=== PATIENT | male | born 1970 | race Caucasian/White ===

== ENCOUNTER 2017-04-16 09:20 | Day surgery (SDC) | payer OTHER ==
[2014-05-19 21:00] VITALS: BMI 28.8
[2017-04-16] MEDS ORDERED: Propofol 10 mg/ml Inj (20 ML) ONE (11:01)
[2017-04-16] MEDS ORDERED: Midazolam 2 MG/2 ML VIAL ONE (11:03)
--- NOTE | 2017-04-16 11:05 | CP.SDSHP ---
Same Day Surgery H & P - History Proposed Procedure: egd Pre-Op Diagnosis: see notes - Previous Medical/Surgical History Cardiac: Hypertension Pain: 4.Moderate Pain - Allergies Allergies: Allergies No Known Allergies Allergy (Verified 05/19/14 21:11) - Physical Exam General Appearance: n Vital Signs: Vital Signs 04/16/17 09:56 Temperature 98.7 F Pulse Rate 65 Respiratory 20 Rate Blood Pressure 138/89 O2 Sat by Pulse 99 Oximetry Mental Status: Alert & Oriented x3 Neuro: WNL Heart: Other Lungs: WNL GI: Other - {Optional Preform as Required} Breast: WNL Abdomen: Other Rectal: WNL Integument: WNL : WNL Ortho: WNL ENT: WNL - Impression Pt. Evaluated Today:Candidate for Anesthesia & Procedure: Yes - Date & Time Time: 11:05 Short Stay Discharge - Short Stay Discharge Admitting Diagnosis/Reason for Visit: GASTRITIS Disposition: HOME/ ROUTINE
[2017-04-16] MEDS ORDERED: Belladonna-Phenobarbital PO STA (11:12)
[2017-04-16] MEDS ORDERED: Pantoprazole 40 mg EC Tab PO STA (11:12)
[2017-04-16 11:44] VITALS: TEMP 98.4
[2017-04-16 12:31] VITALS: BP 118/68; PULSE 62; RESP 17; O2SAT 97
== END 2017-04-16 12:29 | disposition home or self-care (01) ==
LOC: C.ENDO 09:20
PROVIDERS: ATTEND Specialist
DX: K29.00 Acute gastritis without bleeding (principal); K20.9 Esophagitis, unspecified; K29.70 Gastritis, unspecified, without bleeding; K44.9 Diaphragmatic hernia without obstruction or gangrene; I10 Essential (primary) hypertension
CPT/HCPCS: 43239; 88305; 88342; J2001; J2250; J2704